=== PATIENT | male | born 1935 | race Caucasian/White ===

== ENCOUNTER 2020-01-25 07:42 | Day surgery (SDC) | payer MEDICARE, BC ==
[~2020-01-25] VITALS: Ht 190.5 cm; Wt 79.0 kg
[~2020-01-25 07:42] MED LIST: None per pt.
[2020-01-25] MEDS ORDERED: LACTATED RINGERS 1,000 ML IV SCH (08:08)
[2020-01-25] MEDS ORDERED: CHLORHEXIDINE 15 ML UDC MM ONE (08:30)
[2020-01-25 08:44] VITALS: BP 126/82
[2020-01-25] MEDS ORDERED: OMEP-110 PO (08:49)
[2020-01-25] MEDS ORDERED: PROPOFOL 10 MG/ML, 50ML ONE (08:54)
[2020-01-25] MEDS ORDERED: EPHEDRINE 50 MG/ML, 1ML IVPush PRN (10:00)
[2020-01-25] MEDS ORDERED: MIDAZOLAM 1 MG/ML, 2ML IV PRN (10:00)
[2020-01-25] MEDS ORDERED: LABETALOL 5MG/ML, 20ML IV PRN (10:00)
[2020-01-25] MEDS ORDERED: OXYcodone 5 MG/5 ML ORAL.SOL UDC PO PRN (10:00)
[2020-01-25] MEDS ORDERED: FENTANYL PF 100 MCG/2ML IV PRN (10:00)
[2020-01-25] MEDS ORDERED: DIAZEPAM 5 MG/ML, 2ML IVPush PRN (10:00)
[2020-01-25] MEDS ORDERED: HYDROmorphone 1 MG/ML, 1ML INJ IVPush PRN (10:00)
[2020-01-25] MEDS ORDERED: hydrALAzine 20 MG/ML, 1ML IV PRN (10:00)
[2020-01-25] MEDS ORDERED: DIPHENHYDRAMINE 50 MG/ML, 1ML IVPush PRN (10:00)
[2020-01-25] MEDS ORDERED: ALBUTEROL SULFATE 2.5 MG/3 ML NPPB PRN (10:00)
[2020-01-25] MEDS ORDERED: PROMETHAZINE 12.5 MG SUPP PR PRN (10:00)
[2020-01-25] MEDS ORDERED: PROMETHAZINE 25 MG/ML, 1ML IVPush PRN (10:00)
[2020-01-25] MEDS ORDERED: MEPERIDINE/PF 25MG/0.5ML IVPush PRN (10:00)
[2020-01-25] MEDS ORDERED: ONDANSETRON 2MG/ML, 2ML IVPush PRN (10:00)
== END 2020-01-25 12:40 | disposition home or self-care (01) ==
LOC: OUT 07:42
DX: K22.2 Esophageal obstruction (principal); Z11.59 Encounter for screening for other viral diseases; K44.9 Diaphragmatic hernia without obstruction or gangrene; K22.70 Barrett's esophagus without dysplasia; K21.9 Gastro-esophageal reflux disease without esophagitis; Z91.013 Allergy to seafood; Z91.018 Allergy to other foods; Z72.89 Other problems related to lifestyle; Z87.891 Personal history of nicotine dependence; Z85.46 Personal history of malignant neoplasm of prostate; Z79.899 Other long term (current) drug therapy
CPT/HCPCS: 43249; 87635; 93005; C1725; C1769; J2704; J7120

== ENCOUNTER → 2020-02-24 | Outpatient (CLI) | payer MEDICARE, BC ==
[~2020-02-24] MED LIST changes: +LANS15CA5 PO; +OMEP-110 PO
== END | disposition home or self-care (01) ==
LOC: STAR 12:18
PROVIDERS: ATTEND Internal Medicine
DX: Z01.818 Encounter for other preprocedural examination (principal); I45.10 Unspecified right bundle-branch block; I44.4 Left anterior fascicular block; I51.7 Cardiomegaly
CPT/HCPCS: 93005

== ENCOUNTER 2020-02-28 09:55 | Day surgery (SDC) | payer MEDICARE, BC ==
[~2020-02-28] VITALS: Ht 190.5 cm; Wt 79.6 kg
[~2020-02-28 09:55] MED LIST changes: +FENTANYL PF 100 MCG/2ML ONE
[2020-02-28] MEDS ORDERED: CHLORHEXIDINE 15 ML UDC MM ONE (10:11)
[2020-02-28] MEDS ORDERED: LACTATED RINGERS 1,000 ML IV ONE (10:11)
[2020-02-28 10:12] VITALS: BP 116/71
[2020-02-28] MEDS ORDERED: CHLORHEXIDINE 15 ML UDC ONE (10:16)
[2020-02-28] MEDS ORDERED: PROPOFOL 10 MG/ML, 100ML IV ONE (13:27)
== END 2020-02-28 16:00 | disposition home or self-care (01) ==
LOC: OUT 09:55
PROVIDERS: ATTEND Internal Medicine
DX: R13.10 Dysphagia, unspecified (principal); Z11.59 Encounter for screening for other viral diseases; K22.2 Esophageal obstruction; K22.70 Barrett's esophagus without dysplasia; K21.9 Gastro-esophageal reflux disease without esophagitis; Z91.013 Allergy to seafood; Z79.899 Other long term (current) drug therapy; Z91.018 Allergy to other foods; Z85.46 Personal history of malignant neoplasm of prostate
CPT/HCPCS: 36415; 43239; 43249; 87635; 88305; C1725; J2704; J3010; J7120

== ENCOUNTER → 2020-04-06 | Outpatient (CLI) | payer MEDICARE, BC ==
[~2020-04-06] MED LIST changes: -FENTANYL PF 100 MCG/2ML ONE
== END | disposition home or self-care (01) ==
LOC: STAR 15:31
PROVIDERS: ATTEND Anesthesiology
DX: Z01.812 Encounter for preprocedural laboratory examination (principal); Z20.828 Contact with and (suspected) exposure to other viral communicable diseases
CPT/HCPCS: 36415; 87635